=== PATIENT | female | born 1945 | race Caucasian/White ===

== ENCOUNTER 2018-11-24 12:10 | Emergency (ER) | payer OTHER, MEDICAID ==
[~2018-11-24] VITALS: Ht 160 cm; Wt 72.6 kg
[2018-11-24 12:19] VITALS: BP_SYST 144
--- NOTE | 2018-11-24 12:22 | NUR ---
Patient to ER bed 7 to gown for evaluation. Side rails up.
--- NOTE | 2018-11-24 12:24 | NUR ---
Pt [facility]Pt denies sync[facility].
--- NOTE | 2018-11-24 12:30 | NUR ---
YODIT Cruz at bedside examining patient.
[2018-11-24] MEDS ORDERED: IBUPROFEN 400 MG TABLET PO ONE (13:15)
--- NOTE | 2018-11-24 13:30 | NUR ---
medicated the pt with Motrin 400mg per Md order. Will reassess.
--- NOTE | 2018-11-24 13:40 | NUR ---
right arm brace placed pt tolerated well.
[2018-11-24 14:00] VITALS: BP_SYST 144
--- NOTE | 2018-11-24 14:00 | NUR ---
Patient given written and verbal discharge instructions and verbalizes understanding. ER MD discussed with patient the results and treatment provided. Patient in stable condition. ID arm band removed. Rx of Motrin 400mg given. Patient educated on pain management and to follow up with PMD. Pain Scale 3/10.Opportunity for questions provided and answered. Medication side effect fact sheet provided.
== END 2018-11-24 14:00 | disposition home or self-care (01) ==
LOC: SED 12:10
DX: S63.91XA Sprain of unspecified part of right wrist and hand, initial encounter (principal); I10 Essential (primary) hypertension; E78.5 Hyperlipidemia, unspecified; Z88.2 Allergy status to sulfonamides; W19.XXXA Unspecified fall, initial encounter; Y93.89 Activity, other specified; Y92.89 Other specified places as the place of occurrence of the external cause; Y99.8 Other external cause status
CPT/HCPCS: 99283